=== PATIENT | female | born 1950 | race Caucasian/White ===

== ENCOUNTER 2019-08-01 01:19 | Outpatient (CLI) | payer MEDICARE, SELFPAY ==
--- NOTE | 2019-08-01 10:30 | DI.NM_ITS ---
APPROVED REPORT Exam: Exercise Treadmill Patient Location: Out-Patient Room/Bed: Stress Nurse: Julisa Foster RN BMI: 20.54 Baseline Rhythm: Sinus Rhythm Medical History Allergies: No known drug allergies Cardiac Risk Factors: Asthma Exercise History: Physically active Lung Sounds: Clear to auscultation Heart Sounds: Regular Stress Test Details Test: Exercise stress testing was performed using a Adrian protocol. Nuclear Acquisition: Rest Tc-99m/Stress Tc-99m 1 day Rest Isotope: Tc-99m Sestamibi. Dose: 10.5 Date: 08/01/2019 Injection Time: 1030 Stress Isotope: Tc-99m Sestamibi. Dose: 11.0 Date: 08/01/2019 Injection Time: 1340 HR Resting HR Supine: 66 bpm Max Heart Rate (APMHR): 153 bpm Resting HR Standin bpm Target HR (85% APMHR): 130 bpm Max HR Achieved: 133 bpm % of APMHR: 86 HR response to stress: Normal HR response to stress BP Resting BP Supine: 144/68 mmHg Resting BP Standin/70 mmHg Max BP: 160/70 mmHg Recovery BP: 140/66 mmHg BP response to stress: Normal blood pressure response to stress. ECG Resting ECG: Sinus Rhythm Stress ECG: Sinus Tachycardia ST Change: No significant ST segment changes Arrhythmia: None Recovery ECG: Sinus Rhythm Recovery ST Change: Normal Recovery Arrhythmia: None Clinical Reason for Termination: Fatigue Stress Symptoms: General Fatigue Exercise duration: 9 min00 sec Highest Stage Reached: Stage 3: 3.4 mph at 14% grade. Exercise capacity: 10.16 METs Functional Capacity: Average Capacity Stress ECG Conclusion 1. The patient exercised for 9 minutes (10 METS). Patient no symptoms of chest of ischemia. 2. There is no evidence of ischemia on the ECG portion of the exam. Stress Test Summary STAGE Time (mins) Speed (mph) Grade (%) HR BP SYMPTOMS METS Supine 66 144/68 Standing 73 136/70 1 3 1.7 10 94 144/64 4.6 2 6 2.5 12 112 158/60 7 1 min recovery 101 160/70 3 min recovery 94 154/74 6 min recovery 81 140/66 MPI Conclusion Patient's ejection fraction was 73% with stress. There were no wall motion abnormalities. There is no evidence of ischemia on the imaging portion of the exam. This represents a normal SPECT stress test. Radiologist Interpretation Radiologist Interpretation by: Ruben Ricketts MD Interpretation Date/Time: 08/01/2019 15:06:31
== END 2019-08-01 01:39 ==
PROVIDERS: PCP Physician Assistant Medical; Visit Provider Internal Medicine Interventional Cardiology
DX: R06.02 Shortness of breath (principal); R06.09 Other forms of dyspnea; R77.8 Other specified abnormalities of plasma proteins
CPT/HCPCS: 78452; 93016; 93018; 93017